=== PATIENT | male | born 1965 | race Caucasian/White ===

== ENCOUNTER 2017-07-03 11:07 | Emergency (ER) | payer OTHER, SELFPAY | END 2017-07-03 11:55 | disposition home or self-care (01) | LOC: MADERS 11:07 | DX: S05.01XA Injury of conjunctiva and corneal abrasion without foreign body, right eye, initial encounter (principal); I10 Essential (primary) hypertension; F17.220 Nicotine dependence, chewing tobacco, uncomplicated; W22.8XXA Striking against or struck by other objects, initial encounter | CPT/HCPCS: 99283 ==

== ENCOUNTER 2019-11-25 17:00 | Emergency (ER) | payer OTHER, SELFPAY ==
[2019-11-25] MEDS ORDERED: Lidocaine 1% w/Epinephrine 1:100K 20 ML VIAL ONE (17:54)
[2019-11-25] MEDS ORDERED: Adacel (T-DAP) 0.5 ML SYRINGE ONE (17:54)
[2019-11-25] MEDS ORDERED: Rabies Vaccine Human 2.5 UNITS VIAL ONE (18:45)
[2019-11-25] MEDS ORDERED: Triple Antibiotic Oint 1 GM Packet ONE (18:51)
== END 2019-11-25 19:10 | disposition home or self-care (01) ==
LOC: MADERS 17:00
DX: S41.151A Open bite of right upper arm, initial encounter (principal); S51.812A Laceration without foreign body of left forearm, initial encounter; L03.113 Cellulitis of right upper limb; I10 Essential (primary) hypertension; F17.220 Nicotine dependence, chewing tobacco, uncomplicated; W54.0XXA Bitten by dog, initial encounter
CPT/HCPCS: 12007; 90375; 90471; 90472; 90675; 90715; 96372